=== PATIENT | female | born 1935 | race Caucasian/White ===

== ENCOUNTER → 2016-08-05 | Outpatient (CLI) | payer OTHER ==
[~2016-08-05] MED LIST: ASCO1CAP3 PO; BIOT1TAB5 PO; CALCTAB5 PO; CAND32TA PO; FOLGARD PO; IBUP-103 PO; METO-551 PO; PANT40TA PO; POLYSOL OPB; RXC5 PO; SIMV40TA2 PO
[2016-08-05 09:26] LABS: BASO % 0.4 %; BASO ABS # 0.02 K/uL (0-0.2); COMPLETE YES; EOS % 3.6 %; HEMATOCRIT 33.1 % (37-47); IG% 0.2 %; LYMPH % 29.7 %; LYMPH ABS # 1.49 K/uL (1.2-3.4); MEAN CELL VOLUME 80.5 fL (80-100); MEAN CORPUSCULAR HGB CONC 32.3 g/dl (32-36); MEAN PLATELET VOLUME 9.9 fL (7.4-10.4); MONO % 9.8 %; NEUT % 56.3 %; PLATELET COUNT 166 K/uL (130-400); RED BLOOD COUNT 4.11 M/uL (4.2-5.4); WHITE BLOOD COUNT 5.02 K/uL (4.8-10.8)
[2016-08-05 10:17] LABS: AST/SGOT 18 U/L (15-37); BLOOD UREA NITROGEN 23 mg/dl (7-18); BUN/CREATININE RATIO 20.7 (10-20); CALCIUM 8.8 mg/dl (8.5-10.1); CARBON DIOXIDE 28 mmol/L (21-32); CHLORIDE 109 mmol/L (98-107); GLUCOSE 95 mg/dl (70-99); POTASSIUM 4.1 mmol/L (3.5-5.1); SODIUM 143 mmol/L (136-145)
[2016-08-05 10:25] LABS: ALB/GLOB RATIO 0.9 (0.9-2); ALKALINE PHOSPHATASE 109 U/L (45-117); ALT/SGPT 24 U/L (12-78); CHOLESTEROL 212 mg/dl (0-200); CHOLESTEROL/HDL RATIO 2.7; HDL CHOLESTEROL 78 mg/dl; LDL CHOLESTEROL CALCULATED 99 mg/dl; TRIGLYCERIDES 174 mg/dl (0-150); VERY LOW DENSITY LIPOPROT CALC 35 mg/dl
== END | disposition home or self-care (01) ==
LOC: C.LAB1850 08:13
PROVIDERS: ATTEND Internal Medicine
DX: E78.5 Hyperlipidemia, unspecified (principal); I10 Essential (primary) hypertension

== ENCOUNTER → 2016-12-30 | Outpatient (CLI) | payer OTHER ==
[2016-12-30 10:13] LABS: BASO % 1.1 %; BASO ABS # 0.05 K/uL (0-0.2); COMPLETE YES; EOS % 2.8 %; HEMATOCRIT 33.9 % (37-47); IG% 0.2 %; LYMPH ABS # 1.44 K/uL (1.2-3.4); MEAN CELL VOLUME 84.1 fL (80-100); MEAN CORPUSCULAR HEMOGLOBIN 27.5 pg (25-34); MEAN CORPUSCULAR HGB CONC 32.7 g/dl (32-36); MONO % 10.3 %; NEUT % 54.6 %; PLATELET COUNT 160 K/uL (130-400); RED BLOOD COUNT 4.03 M/uL (4.2-5.4); WHITE BLOOD COUNT 4.65 K/uL (4.8-10.8)
[2016-12-30 12:38] LABS: ALT/SGPT 28 U/L (12-78); BLOOD UREA NITROGEN 27 mg/dl (7-18); BUN/CREATININE RATIO 22.2 (10-20); CARBON DIOXIDE 30 mmol/L (21-32); CHLORIDE 108 mmol/L (98-107); GLUCOSE 108 mg/dl (70-99); POTASSIUM 4.2 mmol/L (3.5-5.1); SODIUM 141 mmol/L (136-145)
[2016-12-30 12:43] LABS: ALB/GLOB RATIO 0.9 (0.9-2); ALKALINE PHOSPHATASE 113 U/L (45-117); AST/SGOT 18 U/L (15-37); TOTAL IRON BINDING CAPACITY 284 mcg/dl (250-450)
== END | disposition home or self-care (01) ==
LOC: C.LAB1850 09:18
PROVIDERS: ATTEND Internal Medicine
DX: D64.9 Anemia, unspecified (principal); I65.29 Occlusion and stenosis of unspecified carotid artery

== ENCOUNTER → 2017-02-18 | Outpatient (CLI) | payer OTHER ==
[2017-02-18 12:15] LABS: BASO % 0.5 %; BASO ABS # 0.03 K/uL (0-0.2); COMPLETE YES; EOS % 2.4 %; HEMATOCRIT 37.5 % (37-47); IG% 0.4 %; LYMPH % 33.4 %; LYMPH ABS # 1.84 K/uL (1.2-3.4); MEAN CORPUSCULAR HEMOGLOBIN 27.7 pg (25-34); MEAN CORPUSCULAR HGB CONC 32.5 g/dl (32-36); MEAN PLATELET VOLUME 10.3 fL (7.4-10.4); NEUT % 49.3 %; PLATELET COUNT 171 K/uL (130-400); RED BLOOD COUNT 4.41 M/uL (4.2-5.4); WHITE BLOOD COUNT 5.51 K/uL (4.8-10.8)
== END | disposition home or self-care (01) ==
LOC: C.LAB1850 10:44
PROVIDERS: ATTEND Internal Medicine
DX: D64.9 Anemia, unspecified (principal)

== ENCOUNTER → 2017-05-19 | Outpatient (CLI) | payer OTHER ==
--- NOTE | 2017-05-19 12:30 | DIAGNOSTIC IMAGING REPORT ---
CERVICAL SPINE 5 VIEWS CLINICAL HISTORY: Arm pain. FINDINGS: AP, lateral, bilateral oblique, and odontoid views of the cervical spine are obtained. No prior studies are available for comparison at the time of dictation. The skeletal structures are osteopenic. There is no radiographic evidence of fracture or subluxation. The odontoid process and lateral masses are intact as visualized on the odontoid views. Productive degenerative changes seen at the atlantodental joint. There is minimal anterolisthesis at C3-C4. Alignment is otherwise preserved. The spinolaminar line is preserved. Vertebral body height is maintained throughout the cervical spine. There is mild straightening of the cervical lordosis. The spinous processes are maintained. Anterior osteophytes are seen throughout. There is czwfirgj-ql-jrkvhadk disc space narrowing at C5-C6 with associated endplate sclerosis. Zybs-kg-lsttgbmu narrowing is seen at C4-C5. Posterior disc osteophyte complexes at C4-C5 and C5-C6 may contribute to acquired compromise of the central canal. Multilevel bilateral neural foraminal stenosis is identified, greatest at C4-C5 and C5-C6 bilaterally. Multilevel facet arthropathy is identified. The prevertebral soft tissues are within normal limits. Atherosclerotic calcification is noted in the right carotid bulb. The partially imaged apical lung parenchyma appears clear. IMPRESSION: 1. No acute bony abnormality is seen involving the cervical spine. 2. Osteopenia and spondylotic change as detailed above. Dictated: 05/19/2017 12:01 PM Transcribed: 05/19/2017 12:30 PM [place] Electronically signed by: Matt Del Rio M.D. 05/19/2017 12:33 PM Dictated Date/Time: 05/19/2017 12:01 PM
== END | disposition home or self-care (01) ==
LOC: C.RAD1850 11:33
PROVIDERS: ATTEND Internal Medicine
DX: M79.603 Pain in arm, unspecified (principal)

== ENCOUNTER → 2017-09-09 | Outpatient (CLI) | payer OTHER ==
--- NOTE | 2017-09-09 12:00 | DIAGNOSTIC IMAGING REPORT ---
RIGHT SHOULDER 3 VIEWS; RIGHT HUMERUS 2 VIEWS CLINICAL HISTORY: Right arm pain. FINDINGS: 3 views the right shoulder with AP and lateral views of the right humerus are obtained. No prior studies are available for comparison at the time of dictation. The skeletal structures are osteopenic. There is no radiographic evidence of fracture or dislocation in the right shoulder. There is no radiographic evidence of right humeral fracture. The glenohumeral articulation is preserved. Mild degenerative sclerosis is seen in the greater tuberosity of the humeral head. Productive degenerative change is noted at the acromioclavicular joint. The elbow joint is grossly intact. The overlying soft tissues are within normal limits. The visualized right lung parenchyma appears clear. The heart is enlarged and there is atherosclerotic calcification of the thoracic aorta. IMPRESSION: 1. There is no radiographic evidence of fracture or dislocation in the right shoulder. 2. There is no radiographic evidence of right humeral fracture. 3. Osteopenia and degenerative change as above. Electronically signed by: Matt Del Rio M.D. 09/09/2017 11:59 AM Dictated Date/Time: 09/09/2017 11:57 AM
== END | disposition home or self-care (01) ==
LOC: C.RAD1850 11:02
PROVIDERS: ATTEND Internal Medicine
DX: M25.511 Pain in right shoulder (principal); M85.811 Other specified disorders of bone density and structure, right shoulder; M79.601 Pain in right arm

== ENCOUNTER → 2017-10-21 | Outpatient (CLI) | payer OTHER ==
--- NOTE | 2017-10-21 15:07 | MAMMOGRAPHY REPORT ---
BILATERAL DIGITAL SCREENING MAMMOGRAM TOMOSYNTHESIS WITH CAD: 10/21/2017 CLINICAL HISTORY: Routine screening. Patient has no complaints. TECHNIQUE: Breast tomosynthesis in addition to standard 2D mammography was performed. Current study was also evaluated with a Computer Aided Detection (CAD) system. COMPARISON: Comparison is made to exams dated: 05/26/2016 mammogram, 05/22/2015 mammogram, 05/19/2014 mammogram, 05/18/2013 mammogram, 05/03/2012 mammogram, and 04/30/2011 mammogram - [facility]. BREAST COMPOSITION: There are scattered areas of fibroglandular density in both breasts. FINDINGS: No suspicious masses, calcifications, or areas of architectural distortion are noted in ei ther breast. There has been no significant interval change compared to prior exams. There are stable postsurgical changes in the right central/12:00 breast from prior lumpectomy. Coarse benign dystrop hic calcifications are also noted at the lumpectomy bed. A linear scar marker denotes a scar on the right anterior breast. Mild diffuse right breast skin thickening is not significantly changed. IMPRESSION: ACR BI-RADS CATEGORY 2: BENIGN There is no mammographic evidence of malignancy. A 1 year screening mammogram is recommended. The pa tient will receive written notification of the results. Approximately 10% of breast cancers are not detected with mammography. A negative mammographic report should not delay biopsy if a clinically suggestive mass is present. Brigette Chew M.D. ah/:10/21/2017 13:43:18 Cut Pressman: Josiane DELA CRUZ(Gabriel)(M), [facility] letter sent: Normal 1/2 BI-RADS Code: ACR BI-RADS Category 2: Benign
== END | disposition home or self-care (01) ==
LOC: C.MAMM 12:58
PROVIDERS: ATTEND Internal Medicine
DX: Z12.31 Encounter for screening mammogram for malignant neoplasm of breast (principal); Z85.3 Personal history of malignant neoplasm of breast

== ENCOUNTER 2025-01-11 06:36 | Inpatient (IN) ==
--- NOTE | 2025-01-10 09:31 | Anesthesiology Consultation ---
Date of Service January 10, 2025 Assessment & Plan (1) Encounter for pre-operative examination: Chart Review Chart Review: Acceptable Risk for Surgery (pending evaluation of patient and unconfirmed preop EKG by anesthesiologist DOS ) and Patient NOT seen in Pre Admission Testing Right limb restriction - Discussed cardiac history and recent cardio visit along with abnormal PTT with Dr. Sanchez- due to nature of procedure- patient can proceed as scheduled and will be evaluated DOS in regards to CP status. Dr Broussard's office was made aware of elevated PTT along with 2015 heme/onc consult that is scanned into chart for surgeon review. Per surgeon's office- Dr Broussard is okay proceeding with PTT abnormality. -Infectious Disease screening: Per PAT nursing assessment on 01/03/25. No known infectious disease contacts in past 10 days or current infectious disease symptoms. No recent travel outside the country. Cardiology office visit 08/30/24= six month routine follow up... "doing well from cardiac standpoint... no definite exertionally precipitated chest pains. Occ with exertion she has sensation of fatigue bilateral lower chest... sometimes gets this at rest. No dyspnea at rest. Occ dyspnea walking up 1 flight of stairs..." CAD- s/p RCA stent (remote hx). Chest weakness in lower chest "can occur independent of exertion. Stable exercise tolerance and stamina since last visit." Prelim carotid imaging shows >80% re stenosis of left ICA. Patient referred to vascular surgery. HTN- "BP markedly elevated today." Cardio hesitant to make any antihypertensive med changes due to not wanting to precipitate low BP due to carotid disease. Seen by [facility]e/Onc 03/13/15= "seen for evaluation of elevated PTT... Lupus anticoagulant checked 01/23/2015 and result was reported as positive... APTT mixing study that did not correct, suggestive of an inhibitor. Other pertinent labs performed at that time included a normal factor VIII activity of 118%, mildly elevated VWF antigen of 239%, normal collagen binding of 191% and normal VWF multimers... Patient denies any significant bleeding history... No easy bruising... Has had several surgeries in the past without any postop complications concerning for significant bleeding. Additionally she has had 4 pregnancies in the past without significant bleeding or bleeding... Denies any DVTs, no PEs." Patient was recommended to have additional lab studies and addendum was made with further recommendations. Addendum = "Repeat labs revealed a persistent elevation in her PTT. Her results are most consistent with intrinsic and/or common pathway factor deficiency, including the presence of a weak inhibitor such as a lupus anticoagulant. Given no history of easy bleeding or bruising, we repeated her lupus anticoagulant testing. The revealed her sample to positive for a lupus anticoagulant by both the STACLOT-LA hexagonal phase neutralization (confirmatory) assay (25 seconds) and the DRVV confirmatory assay (DRVV/confirm ration of 1.6). Given the lack of clinical bleeding history with a PTT that does not correct with mixing and persistent positive lupus anticoagulant tested twice about 8 weeks apart, her elevated PTT is most consistent with laboratory effect of her lupus anticoagulant. Clinically, this does not cause an increased bleeding risk and rather is considered a prothrombotic risk factor. For her upcoming knee surgery, we do not recommend any specific factor replacement or intervention to correct her PTT. She should receive appropriate postsurgical DVT prophylaxis." History Surgery Operation Date: 01/11/25 08:00 Proposed Procedures p Left Transcarotid Artery Revascularization - Cristian Broussard MD Height/Weight Height: 5 ft 5 in Weight: 72.575 kg Allergies Allergy/AdvReac Type Severity Reaction Status Date / Time amlodipine Allergy Unknown UNKNOWN Verified 01/11/25 07:21 REACTION Hgovpza-JGC-RhD Reductase Allergy Unknown ANKLE Verified 01/11/25 07:21 Inhibitor SWELLING [Djapdzl-Vdv-Mwp Reductase Inhibitor] Medications Home Medications Medication Instructions Recorded Confirmed Last Taken amoxicillin 500 mg tablet 2,000 mg PO UD PRN dental 01/03/25 01/11/25 Unknown procedures biotin 1,000 mcg chewable tablet 1,000 mcg PO QAM 01/03/25 01/11/25 1 Week Ago ~01/04/25 candesartan 16 1 tab PO QAM 01/03/25 01/11/25 01/10/25 09:00 mg-hydrochlorothiazide 12.5 mg tablet cholecalciferol (vitamin D3) 25 25 mcg PO QAM 01/03/25 01/11/25 2 Weeks Ago mcg (1,000 unit) capsule ~12/28/24 clopidogrel 75 mg tablet 75 mg PO QPM 01/03/25 01/11/25 01/11/25 06:55 folic acid 1 mg tablet 1 mg PO QAM 01/03/25 01/11/25 01/10/25 09:00 metoprolol tartrate 50 mg tablet 50 mg PO QAM 01/03/25 01/11/25 01/11/25 06:55 pantoprazole 20 mg tablet,delayed 20 mg PO QAM 01/03/25 01/11/25 01/10/25 09:00 release rosuvastatin 40 mg tablet 40 mg PO QPM 01/03/25 01/11/25 01/11/25 06:55 aspirin 81 mg chewable tablet 81 mg PO Q OTHER DAY 01/11/25 01/11/25 2 Weeks Ago ~12/28/24 Active Medications Generic Name Dose Route Start Last Admin Trade Name Dontrellq PRN Reason Stop Dose Admin Lactated Ringer's 1,000 mls @ 15 mls/hr 01/11/25 06:00 01/11/25 07:22 Lr IV 01/12/25 05:59 15 mls/hr .Q24H PIETRO Administration Past Medical History Medical History Abnormal partial thromboplastin time (PTT) - 2014- evaluated by local and [facility] heme/onc- PCP records state possible von Willebrands, cardio records state positive for lupus anticoagulant - Patient has never had had any noted bleeding issues per PCP note nor has she had any clotting issues per cardio note - PCP records state " given her abnormal PTT and additional testing completed it was recommended proper AC after surgical procedure due to increased risk of further clotting." Chronic kidney disease, stage 4 (severe) f/u [facility] baseline creat 2.0-2.2 per nephro records Bilateral carotid artery disease s/p left CEA 2004 History of anxiety Antiplatelet or antithrombotic long-term use Hx of rotator cuff tear left, received injections in the past, no sx. Hx of thrombocytopenia Mixed hyperlipidemia Hearing loss bilat. hearing aids-"cannot hear at all without them" Hx of gastroesophageal reflux (GERD) Hx of coronary artery disease Remote hx of RCA stent 2002 History of anemia Benign essential HTN Malignant neoplasm of breast (female) dx in her 60's, right breast, s/p lumpectomy and 19 xrt treatments Myocardial Infarction 2002, "mild" NSTEMI [place]; f/u [facility] cardio Past Family History Family History Sister Breast cancer Colorectal cancer Mother Coronary heart disease Lymphoma Myocardial infarction Father Myocardial infarction Denies family history of Ovarian cancer Prostate cancer Past Surgical History Surgical History Hx of colonoscopy Hx of bilateral cataract extraction Hx of tonsillectomy History of left-sided carotid endarterectomy ~ 2004 History of lumpectomy of right breast in her 60's, w/ axillary lymph node dissection; right arm restriction S/P knee replacement left History of heart artery stent 2002, mild [place], [facility], x1 stent; [place] [facility] History of cardiac cath 2002, mild [place], [facility], x1 stent; f/u [facility] Social History Smoking Status: Former smoker Do You Dip or Chew Tobacco: No Smoking End Date: 38 years ago Hx Alcohol Use: No Hx Substance Use: No substance use type: does not use Physical Exam Vital Signs Last Vital Signs Temp 36.5 C 01/11/25 06:55 Pulse 88 01/11/25 06:55 Resp 20 01/11/25 06:55 BP 171/109 H 01/11/25 06:55 Pulse Ox 97 01/11/25 06:55 O2 Del Method Room Air 01/11/25 06:55 Lab Results Anesthesia Preop Results Results Anesthesia Widget: WBC 4.79 K/ul (4.8-10.8) L 01/10/25 Hgb 10.3 g/dl (12.0-16.0) L 01/10/25 Hct 31.2 % (37.0-47.0) L 01/10/25 Plt 110 K/uL (130-400) L 01/10/25 Na 141 mmol/L (136-145) 01/10/25 K 4.6 mmol/L (3.5-5.1) 01/10/25 Cl 109 mmol/L (98-107) H 01/10/25 CO2 24 mmol/L (21-32) 01/10/25 BUN 41 mg/dl (6-23) H 01/10/25 Creat 2.36 mg/dl (0.6-1.2) H 01/10/25 Glucose Level 93 mg/dl (70-99(Fasting)) 01/10/25 PT 11.4 Seconds (9.0-12.0) 01/10/25 PTT 63 Seconds (21-31) H 01/10/25 INR 1.1 (0.9-1.1) 01/10/25 Blood Type O Positive 01/10/25 Antibody Screen NEGATIVE 01/10/25 Testing Laboratory Results Anemia- chronic and stable - Hgb ranges in 10-11s - will leave to surgeon's discretion with how to proceed Thrombocytopenia- chronic and stable since 2021- will leave to surgeon's discretion with how to proceed Elevated creatinine- CKD- follows with nephro - baseline creat 2.0-2.2 per records Elevated PTT- comparison PTT found in showed PTT around 44- surgeon's office was made aware- okay to proceed per Dr Broussard per surgeon's office Electrocardiogram Date: 01/10/25 SR with 1st degree AVB at 73bpm Inferior infarct (cited on or before May 04, 2018) Possible anterior infarct (cited on or before May 04, 2018) unconfirmed- will need reviewed by anesthesiologist stat DOS (Normal DSE on 05/04/18) Other Testing Neck MRA 11/14/24= Mild diffuse atherosclerotic changes are seen with mild tortuous appearance of carotid vessels. Mild diffuse relative narrowing of left common carotid artery seen as compared to the right side with mild mural thickening in its distal part close to its bifurcation resulting in mild luminal narrowing of less than 50% for the length of 1.0 cm. Left common carotid bulb and proximal left internal carotid artery show moderate stenosis of less than 70% for the length 1.8 cm, however there is focal stenosis of more than 80% at the distal end of this above-described stenosed segment of proximal left ICA. Rest of the distal cervical left internal carotid artery shows mild relative attenuation as compared to the right side. Correlate clinically. Carotid duplex 08/30/24= <50% stenosis right ICA. >80% re-stenosis of left ICA s/p CEA. Antegrade flow to both vertebral arteries
[2025-01-11] MEDS ORDERED: PROPOFOL IV EMULSION 10 MG/ML 20 ML VIAL IV ONE (06:54)
[2025-01-11] MEDS ORDERED: GLYCOPYRROLATE 0.2 MG/ML VIAL ONE ×3 (06:55→08:56)
[2025-01-11] MEDS ORDERED: NEOSTIGMINE METHYLSULFATE 1 MG/ML 10ML VIAL ONE (06:56)
[2025-01-11] MEDS ORDERED: CISATRACURIUM BESYLATE IV SOLN 2 MG/ML 10 ML VIAL IV ONE (06:57)
[2025-01-11] MEDS ORDERED: ETOMIDATE 2 MG/ML 20 ML VIAL IV ONE (06:58)
[2025-01-11] MEDS ORDERED: HEPARIN SOD (PORCINE) 1000 UNIT/ML ONE (06:59)
[2025-01-11] MEDS: ASPIRIN 81 MG CHEW PO STA (07:16)
[2025-01-11] MEDS: CLOPIDOGREL BISULFATE 300 MG TAB PO STA (07:16)
[2025-01-11] MEDS: LACTATED RINGER'S 1,000 ML IV SCH ×2 (07:22→11:33)
--- NOTE | 2025-01-11 07:28 | History & Physical Report ---
Date of Service January 11, 2025 Assessment & Plan (1) Left carotid artery stenosis: Plan: Patient admitted for a left tcar. I have discussed the risks options and benefits of the procedure with the patient. The patient understands the risks options and benefits and agrees to the procedure. History of Present Illness Chief Complaint: Left carotid stenosis Primary Care Provider: Feliberto Alejo MD Ms. Amado is an elderly female who presents to vascular surgery clinic in consultation for carotid stenosis noted on recent imaging. Patient states that she did have a left carotid endarterectomy performed by Dr. Arriaga in the remote past. She states that her glazier structural glass has been having her get ultrasounds performed periodically, and she was informed that her most recent ultrasound indicated worsening restenosis in this area. Patient states that her primary symptoms at this time are that she is very hard of hearing and is hearing voices occasionally which sound like someone is singing. She admits some occasional numbness to the lateral side of her right leg, but states that it continues to function perfectly fine. Additionally she states that she occasionally gets a severe headache which is generalized and not unilateral. She states that she has had all the symptoms for a number of years. She denies true amaurosis, but states that she sometimes does feel as if she sees someone walking past her left eye, but when she turns her head no one is there. She denies feeling as if part of her vision is missing, or a curtain is coming down or cloud is coming over her eye. She denies unilateral extremity weakness numbness or tingling, difficulty speaking or swallowing, facial droop, sudden onset confusion, other complaints. She denies fever, chest pain, shortness of breath, abdominal pain, nausea, vomiting, rest pain, claudication, nonhealing's or ulcers, other complaints. Her MRA of her carotids artery showed a severe preocclusive lesion of the left internal carotid artery just at the distal end of the endarterectomy site. The right carotid has approximately 50% narrowing at its origin. Allergies Allergy/AdvReac Type Severity Reaction Status Date / Time amlodipine Allergy Unknown UNKNOWN Verified 01/11/25 07:21 REACTION Ipmfvwp-TUF-GjH Reductase Allergy Unknown ANKLE Verified 01/11/25 07:21 Inhibitor SWELLING [Pniifts-Nat-Jqu Reductase Inhibitor] Home Medications Medication Instructions Recorded Confirmed Type amoxicillin 500 mg tablet 2,000 mg PO UD PRN dental 01/03/25 01/11/25 History procedures biotin 1,000 mcg chewable tablet 1,000 mcg PO QAM 01/03/25 01/11/25 History candesartan 16 1 tab PO QAM 01/03/25 01/11/25 History mg-hydrochlorothiazide 12.5 mg tablet cholecalciferol (vitamin D3) 25 25 mcg PO QAM 01/03/25 01/11/25 History mcg (1,000 unit) capsule clopidogrel 75 mg tablet 75 mg PO QPM 01/03/25 01/11/25 History folic acid 1 mg tablet 1 mg PO QAM 01/03/25 01/11/25 History metoprolol tartrate 50 mg tablet 50 mg PO QAM 01/03/25 01/11/25 History pantoprazole 20 mg tablet,delayed 20 mg PO QAM 01/03/25 01/11/25 History release rosuvastatin 40 mg tablet 40 mg PO QPM 01/03/25 01/11/25 History aspirin 81 mg chewable tablet 81 mg PO Q OTHER DAY 01/11/25 01/11/25 History Past Med/Surg History Problem List Encounter for pre-operative examination History of right breast cancer 1990s Hypertension Reactive hypertension Sensorineural hearing loss, bilateral Tinnitus of left ear Left carotid artery stenosis Thrombocytopenia Secondary hyperparathyroidism of renal origin Anemia due to chronic kidney disease Presence of stent in right coronary artery Rotator cuff tear, left HI (hearing impairment) Shoulder pain, left Vitamin D deficiency disease Vitamin B12 deficiency Visual aura Antiplatelet or antithrombotic long-term use History of left-sided carotid endarterectomy Mixed hyperlipidemia CAD (coronary artery disease) 2002 Palpitations GERD (gastroesophageal reflux disease) Osteoarthritis of knee Medical History Abnormal partial thromboplastin time (PTT) - 2014- evaluated by local and [facility] [place]c- PCP records state possible von Willebrands, cardio records state positive for lupus anticoagulant - Patient has never had had any noted bleeding issues per PCP note nor has she had any clotting issues per cardio note - PCP records state " given her abnormal PTT and additional testing completed it was recommended proper AC after surgical procedure due to increased risk of further clotting." Chronic kidney disease, stage 4 (severe) f/u [facility] neph[facility] baseline creat 2.0-2.2 per nephro records Bilateral carotid artery disease s/p left CEA 2004 History of anxiety Antiplatelet or antithrombotic long-term use Hx of rotator cuff tear left, received injections in the past, no sx. Hx of thrombocytopenia Mixed hyperlipidemia Hearing loss bilat. hearing aids-"cannot hear at all without them" Hx of gastroesophageal reflux (GERD) Hx of coronary artery disease Remote hx of RCA stent 2002 History of anemia Benign essential HTN Malignant neoplasm of breast (female) dx in her 60's, right breast, s/p lumpectomy and 19 xrt treatments Myocardial Infarction 2003, "mild" NSTEMI [place]; f/u [facility] Surgical History Hx of colonoscopy Hx of bilateral cataract extraction Hx of tonsillectomy History of left-sided carotid endarterectomy ~ 2004 History of lumpectomy of right breast in her 60's, w/ axillary lymph node dissection; right arm restriction S/P knee replacement left History of heart artery stent 2002, mild [place], [facility], x1 stent; f/u [facility] History of cardiac cath 2002, mild [place], [facility], x1 stent; f/u [facility] Family History Sister Breast cancer Colorectal cancer Mother Coronary heart disease Lymphoma Myocardial infarction Father Myocardial infarction Denies family history of Ovarian cancer Prostate cancer Social History Smoking Status: Former smoker Smoking End Date: 38 years ago; Second Hand Exposure: Yes (hx, smokes); Do You Dip or Chew Tobacco: No; Tobacco Cessation Education Requested by Patient: No Hx Alcohol Use: No Hx Substance Use: No Preferred Language: Serbian Communication Ability: Effective Visual Impairment: No Limitations Hearing Ability: Use of Hearing Aid Purchasing Administrative Assistant Required: No Beliefs That Will Affect Care: None marital status: Current Living Situation: Spouse current occupational status: retired Other Information That Helps Us Care for You: No Feels Safe at Home: Yes Safety Concerns: Feels Safe At This Time Childhood Exposure to Second-Hand Smoke: Yes Dental Care, Regularly: Yes Physical Activity Frequency: Daily Seatbelt Use: always Sunscreen Use: No Assistive Devices: Cane and Hearing Aid - Bilateral Review of Systems All systems reviewed & are unremarkable except as noted in HPI & below Physical Exam Physical Exam: Constitutional: In general patient is a healthy appearing for age well-nourished well-developed elderly female in no distress. She is alert and oriented without focal deficits. She is hard of hearing. Her trachea is midline. Her carotids do demonstrate a faint bruit. Her heart is regular with occasional PVCs. Her abdomen is soft nontender with erected bowel sounds in all 4 quadrants. Radial and brachial pulses are +3. Femoral pulses are +3. Lower extremity distal pulses are +1. She has brisk capillary refill and no sign of distal ischemia. Results & Data Vital Signs (Past 12 Hours) Vital Signs Temp Pulse Resp BP Pulse Ox O2 Del Method 01/11/25 06:55 36.5 C 88 20 171/109 H 97 Room Air
[2025-01-11] MEDS ORDERED: ATROPINE SULFATE 0.1 MG/ML 10ML SYR IV PRN (07:29)
[2025-01-11] MEDS ORDERED: NALOXONE HCL 0.4 MG/1 ML VIAL/CARP IV PRN (07:29)
[2025-01-11] MEDS ORDERED: PROMETHAZINE HCL 6.25 MG in SODIUM CHLORIDE 0.9% 50 ML IV PRN (07:29)
[2025-01-11] MEDS ORDERED: ONDANSETRON INJ 2 MG/ML 2 ML VIAL IV PRN (07:29)
[2025-01-11] MEDS ORDERED: SUCCINYLCHOLINE 100MG/5ML SYR IV ONE (08:57)
[2025-01-11] MEDS ORDERED: ePHEDrine sulfate 50 MG/5 ML SYR ONE (08:57)
[2025-01-11] MEDS ORDERED: PHENYLEPHRINE 100MCG/ML 5ML SYR ONE (08:57)
[2025-01-11] MEDS ORDERED: PROTAMINE SULFATE 10 MG/ML 5 ML VIAL IV ONE (09:03)
[2025-01-11] MEDS: VISIPAQUE IV ONE (09:06)
[2025-01-11] MEDS: ceFAZolin 330 MG/ML 1 GM VIAL ONE (09:10)
[2025-01-11] MEDS: BUPIVACAINE/EPINEPHRINE 0.5% MPF 1:200,000 30 ML VIAL ONE (09:10)
[2025-01-11] MEDS ORDERED: NITROGLYCERIN/D5W 100 MCG/ML BTL ONE (09:15)
[2025-01-11] MEDS ORDERED: ESMOLOL HCL INJ 10 MG/ML 10ML VIAL IV ONE (09:18)
[2025-01-11] MEDS: THROMBIN FOR SOLN 20000 UNIT KIT ONE (09:18)
[2025-01-11] MEDS: GELATIN SPONGE SZ 100 ONE (09:18)
--- NOTE | 2025-01-11 09:32 | Procedure Note ---
Angiogram Post Procedure Fluoroscopy Time (minutes): 2.3 Radiation (mGy): 33 Contrast: 15 Post Operative Report Pre & Post Diagnosis Operation Date: 01/11/25 08:00 Pre-Op Diagnosis: Left carotid artery stenosis Post-Op Diagnosis: Left carotid artery stenosis I identified the patient and participated in the time-out.: Yes Procedure Operation Date: 01/11/25 08:00 Actual Procedures p Left Transcarotid Artery Revascularization(Left), Ultrasound localization of the right common femoral vein- Cristian Broussard MD Surgeon Cristian Broussard MD [employer] Consultant none Estimated Blood Loss 10 Findings Consistent with Post-Op Diagnosis Specimens none Anesthesia Type General Complications none Disposition Accompanied Patient To Recovery: No Disposition: Recovery Room Indications This is an 89-year-old female who had a carotid endarterectomy left side years ago. She has now developed a restenosis in the distal end of the endarterectomy site in the internal carotid artery which was preocclusive. Redo endarterectomy versus TCAR was recommended. She elected to go ahead with a TCAR approach. I have discussed the risks options and benefits of the procedure with the patient. The patient understands the risks options and benefits and agrees to the procedure. Description of Procedure The patient was taken to the operating room and placed in supine position. After general anesthesia was accomplished the groins and left side of the neck and chest were prepped and draped in a sterile manner. Timeout was performed and the patient was identified. A transverse incision was made just above the clavicle between the heads of the sternocleidomastoid. This was carried down to where the common carotid artery was identified. It was isolated and slung with an umbilical tape. It was given 8000units of heparin at that time. Ultrasound was then used to localize the right common femoral vein. The vein was patent and compressed easily. Under ultrasound guidance the right common femoral vein was punctured and the venous sheath was inserted. This was aspirated and flushed with heparinized saline. An ACT at that time was 297. Using micropuncture technique the common carotid artery was punctured. The micro sheath was inserted to 3 cm. Injection was then done showing the bifurcation. There was a significant lesion seen just beyond the origin of the internal carotid artery on the left side at what appeared to be the end of the endarterectomy site. We reinserted the micro wire and passed it into the external carotid. We then advanced the dilator and sheath into the external carotid. The dilater and sheath were removed. We then inserted the J-wire into the external carotid artery. The TCAR sheath was inserted. Once it was in place and held against the artery it was sutured to the chest wall and the incision edge. We then flushed the tubing appropriately. The venous return tubing was clamped onto the TCAR sheath. It was flushed through and then attached to the venous inflow sheath in the right groin. The sheath was checked for flow. The common carotid artery was then clamped. Flow through the venous return sheath was again checked and found to be adequate. We then inserted a 6 x 35 balloon backloaded on the wire. The wire was passed through the lesion into the petrous portion of the internal carotid. The 6 balloon was then advanced to the lesion. The lesion was then predilated with the 6 mm balloon. The balloon was removed. We then inserted the 10/8 x 40 stent. This was deployed across the lesion without difficulty. The catheter was removed. The carotid was allowed to go 2 minutes with flow reversal. We did another angiogram which showed no residual stenosis and a nicely seated stent.The wire was removed and the common carotid artery was unclamped. The venous return tubing was clamped and removed from the TCAR sheath. The blood was allowed to flow back into the venous system. The TCAR sheath was then removed and the 5-0 Prolene suture securely tied. Hemostasis was noted of the puncture site. The patient was given 25 mg of protamine. Another ACT was performed which was 167. The sheath was pulled from the groin and pressure was applied. Wound was irrigated with Ancef solution. Adequate hemostasis was obtained of the wound. Once this was noted the wound was closed in usual fashion using a 3-0 Vicryl suture for the subcutaneous layer and a 4-0 subcuticular Vicryl suture for the skin edges. Dermabond was used for dressing.The patient left the operation room in satisfactory condition and tolerated the procedure well. All needle and sponge counts were correct at the end of the procedure. I attest to the content of the Intraoperative Record and any orders documented therein. Any exceptions are noted below.
--- NOTE | 2025-01-11 10:26 | Anesthesiology Progress Note ---
Date of Service January 11, 2025 Anesthesia Post Procedure Vital Signs Vital Signs: Temp Pulse Resp BP BP Pulse Ox O2 Del Method 01/11/25 10:20 78 14 164/90 H 165/74 H 95 Room Air 01/11/25 10:10 36.3 C L 73 12 155/81 H 168/81 H 96 Room Air 01/11/25 10:00 75 16 163/106 H 167/104 H 100 Oxymask 01/11/25 09:50 76 16 163/102 H 178/105 H 100 Oxymask 01/11/25 09:40 36.3 C L 87 18 184/101 H 100 Oxymask 01/11/25 06:55 36.5 C 88 20 171/109 H 97 Room Air O2 Flow Rate 01/11/25 10:20 01/11/25 10:10 01/11/25 10:00 2 01/11/25 09:50 4 01/11/25 09:40 6 01/11/25 06:55 Transfer of Care Handoff Completed per policy Notes Mental Status: alert / awake / arousable Patient Amnestic to Procedure: Yes Nausea / Vomiting: adequately controlled Pain: adequately controlled Airway Patency, RR, SpO2: stable & adequate BP & HR: stable & adequate Hydration State: stable & adequate Anesthetic Complications: no major complications apparent
[2025-01-11] MEDS ORDERED: STAT IV Infusion **Titration per Protocol STA (10:44)
[2025-01-11] MEDS ORDERED: PHENYLEPHRINE/NSS 25 MG/250 ML BAG IV PRN (10:44)
[2025-01-11] MEDS: PROMETHAZINE 12.5 MG/50.5 ML BAG IV PRN (11:28)
--- NOTE | 2025-01-11 16:41 | Critical Care Consultation ---
Date of Consultation January 11, 2025 Assessment & Plan (1) Hypertension: (2) Thrombocytopenia: (3) Anemia due to chronic kidney disease: (4) CAD (coronary artery disease): (5) GERD (gastroesophageal reflux disease): (6) Bilateral carotid artery disease: (7) Chronic kidney disease, stage 4 (severe): Plan Jane Wright is an 89 year-old female with past medical history of hypertension, right breast CA, sensorineural hearing loss, anemia of chronic disease, CAD, GERD, osteoarthritis, HLD, CKD stage 4, and carotid artery stenosis; who presented to [facility] on 01/11/2025 for planned left TCAR. Carotid artery disease; Left carotid stenosis in setting of prior CEA -Maintain SBP > 100 -Neurovascular checks per protocol -Cont aspirin and plavix - Hypertension; CAD -Cont HCTZ and losartan start 01/12/2025 -Continue metoprolol start 01/12/2025 Chronic kidney Disease Stage 4 -Baseline creatinine 1.9-2.3. Admit creatinine 2.22. -Monitor renal function. Avoid nephrotoxic agents. GERD -Continue PPI Anemia of chronic disease; thrombocytopenia -Chronic likely secondary to kidney disease and chronic illness -Hgb 10.3 on admission. Monitor for signs of bleeding. -Platelet count at baseline 100- 120. Plt count 110 on admission Thank you for allowing us to participate in this patient's care. Feel free to reach out with questions or concerns. Supervising Physician Co-Signing Physician Notes 89-year-old female status post elective left TCAR. Doing well. Hemodynamically stable. No focal neurological signs on exam. Continue close hemodynamic monitoring and neurovascular checks. Continue dual antiplatelets and home meds per vascular surgeon. History of Present Illness Reason for Consultation: Post operative management of left TCAR Attending Physician: Cristian Broussard MD History of Present Illness Jane Wright is an 89 year-old female with past medical history of hypertension, right breast CA, sensorineural hearing loss, anemia of chronic disease, CAD, GERD, osteoarthritis, HLD, CKD stage 4, and carotid artery stenosis; who presented to [facility] on 01/11/2025 for planned left TCAR. The patient was getting routine vascular ultrasound ordered by her cardio. The most recent in August of 2024 showed restenosis of the left carotid artery post CEA. The patient had an MRA which showed a severe preocclusive lesion of the left internal carotid artery just at the distal end of the endarterectomy site. The right carotid has approximately 50% narrowing at its origin. Patient was evaluated by Dr. Broussard and setup for left TCAR on 01/11/2025. Per report the procedure went well without complications. She was brought back to the ICU post operatively for continued evaluation and management. Allergies Allergy/AdvReac Type Severity Reaction Status Date / Time amlodipine Allergy Unknown UNKNOWN Verified 01/11/25 07:21 REACTION Lqvccmk-LOO-GoV Reductase Allergy Unknown ANKLE Verified 01/11/25 07:21 Inhibitor SWELLING [Ehqqcxl-Cor-Bji Reductase Inhibitor] Home Medications Medication Instructions Recorded Confirmed Type amoxicillin 500 mg tablet 2,000 mg PO UD PRN dental 01/03/25 01/11/25 History procedures biotin 1,000 mcg chewable tablet 1,000 mcg PO QAM 01/03/25 01/11/25 History candesartan 16 1 tab PO QAM 01/03/25 01/11/25 History mg-hydrochlorothiazide 12.5 mg tablet cholecalciferol (vitamin D3) 25 25 mcg PO QAM 01/03/25 01/11/25 History mcg (1,000 unit) capsule clopidogrel 75 mg tablet 75 mg PO QPM 01/03/25 01/11/25 History folic acid 1 mg tablet 1 mg PO QAM 01/03/25 01/11/25 History metoprolol tartrate 50 mg tablet 50 mg PO QAM 01/03/25 01/11/25 History pantoprazole 20 mg tablet,delayed 20 mg PO QAM 01/03/25 01/11/25 History release rosuvastatin 40 mg tablet 40 mg PO QPM 01/03/25 01/11/25 History aspirin 81 mg chewable tablet 81 mg PO Q OTHER DAY 01/11/25 01/11/25 History Patient History Medical History Abnormal partial thromboplastin time (PTT) - 2014- evaluated by local and [facility] heme/onc- PCP records state possible von Willebrands, cardio records state positive for lupus anticoagulant - Patient has never had had any noted bleeding issues per PCP note nor has she had any clotting issues per cardio note - PCP records state " given her abnormal PTT and additional testing completed it was recommended proper AC after surgical procedure due to increased risk of further clotting." Chronic kidney disease, stage 4 (severe) f/u [facility] baseline creat 2.0-2.2 per nephro records Bilateral carotid artery disease s/p left CEA 2004 History of anxiety Antiplatelet or antithrombotic long-term use Hx of rotator cuff tear left, received injections in the past, no sx. Hx of thrombocytopenia Mixed hyperlipidemia Hearing loss bilat. hearing aids-"cannot hear at all without them" Hx of gastroesophageal reflux (GERD) Hx of coronary artery disease Remote hx of RCA stent 2002 History of anemia Benign essential HTN Malignant neoplasm of breast (female) dx in her 60's, right breast, s/p lumpectomy and 19 xrt treatments Myocardial Infarction 2003, "mild" NSTEMI [place]; f/[facility] Surgical History Hx of colonoscopy Hx of bilateral cataract extraction Hx of tonsillectomy History of left-sided carotid endarterectomy ~ 2004 History of lumpectomy of right breast in her 60's, w/ axillary lymph node dissection; right arm restriction S/P knee replacement left History of heart artery stent 2003, mild [place], [facility], x1 stent; [facility] History of cardiac cath 2002, mild [place], [facility], x1 stent; [facility] Family History Sister Breast cancer Colorectal cancer Mother Coronary heart disease Lymphoma Myocardial infarction Father Myocardial infarction Denies family history of Ovarian cancer Prostate cancer Social History Smoking Status: Former smoker Smoking End Date: 38 years ago; Second Hand Exposure: Yes (hx, smokes); Do You Dip or Chew Tobacco: No; Tobacco Cessation Education Requested by Patient: No Hx Alcohol Use: No Hx Substance Use: No Preferred Language: Panamanian Communication Ability: Effective Visual Impairment: No Limitations Hearing Ability: 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 of 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 Hand Required: No Beliefs That Will Affect Care: None marital status: Current Living Situation: Spouse current occupational status: retired Other Information That Helps Us Care for You: No Feels Safe at Home: Yes Safety Concerns: Feels Safe At This Time Childhood Exposure to Second-Hand Smoke: Yes Dental Care, Regularly: Yes Physical Activity Frequency: Daily Seatbelt Use: always Sunscreen Use: No Assistive Devices: Hearing Aid - Bilateral Assistive Devices Comment: at home, patient uses cane PRN, and glasses Review of Systems Review of Systems: All systems reviewed & are unremarkable except as noted in HPI & below Physical Exam Physical Exam: VITALS: Reviewed. WEIGHT/BMI reviewed. GEN: Stated age appearing, NAD. PSYCH: Good Judgment. AOx3. Normal memory, mood, and affect. HEENT -Head: NC/AT; -Eyes: PERRL, EOMI. No discharge or redn ess; -Ears: External ears are normal. -Nose: Normal nares. NECK: Supple, with no masses. left TCAR site with ecchymosis but no hematoma CV: RRR, no m/r/g. LUNGS: CTAB, no w/r/c. ABD: Soft, NT/ND, NBS, no masses or organomegaly. : N/A SKIN: Warm, well perfused. No skin rashes or abnormal lesions. Groin access site with no hematoma or bleeding. MSK: No deformities, Normal gait. EXT: No clubbing, cyanosis, or edema. NEURO: Normal muscle strength and tone. No focal deficits. Results & Data Results & Data Vital Signs (Past 12 Hours) Vital Signs Temp Pulse Pulse Resp BP BP BP 01/11/25 13:00 162/84 H 01/11/25 13:00 63 16 01/11/25 12:15 62 21 01/11/25 12:00 167/86 H 01/11/25 11:06 78 01/11/25 11:03 76 14 01/11/25 11:00 151/104 H 01/11/25 10:57 63 15 01/11/25 10:44 36.5 C 63 17 166/80 H 01/11/25 10:30 36.5 C 59 L 18 158/90 H 01/11/25 10:20 78 14 164/90 H 165/74 H 01/11/25 10:10 36.3 C L 73 12 155/81 H 168/81 H 01/11/25 10:00 75 16 163/106 H 167/104 H 01/11/25 09:50 76 16 163/102 H 178/105 H 01/11/25 09:40 36.3 C L 87 18 184/101 H 01/11/25 06:55 36.5 C 88 20 171/109 H Pulse Ox O2 Del Method O2 Flow Rate 01/11/25 13:00 01/11/25 13:00 100 01/11/25 12:15 99 01/11/25 12:00 01/11/25 11:06 01/11/25 11:03 97 01/11/25 11:00 01/11/25 10:57 96 01/11/25 10:44 100 Room Air 01/11/25 10:30 100 Room Air 01/11/25 10:20 95 Room Air 01/11/25 10:10 96 Room Air 01/11/25 10:00 100 Oxymask 2 01/11/25 09:50 100 Oxymask 4 01/11/25 09:40 100 Oxymask 6 01/11/25 06:55 97 Room Air Critical Care Results & Data Vital Signs (Past 12 Hours) Vital Signs Temp Pulse Pulse Resp BP BP BP 01/11/25 13:00 162/84 H 01/11/25 13:00 63 16 01/11/25 12:15 62 21 01/11/25 12:00 167/86 H 01/11/25 11:06 78 01/11/25 11:03 76 14 01/11/25 11:00 151/104 H 01/11/25 10:57 63 15 01/11/25 10:44 36.5 C 63 17 166/80 H 01/11/25 10:30 36.5 C 59 L 18 158/90 H 01/11/25 10:20 78 14 164/90 H 165/74 H 01/11/25 10:10 36.3 C L 73 12 155/81 H 168/81 H 01/11/25 10:00 75 16 163/106 H 167/104 H 01/11/25 09:50 76 16 163/102 H 178/105 H 01/11/25 09:40 36.3 C L 87 18 184/101 H 01/11/25 06:55 36.5 C 88 20 171/109 H Pulse Ox O2 Del Method O2 Flow Rate 01/11/25 13:00 01/11/25 13:00 100 01/11/25 12:15 99 01/11/25 12:00 01/11/25 11:06 01/11/25 11:03 97 01/11/25 11:00 01/11/25 10:57 96 01/11/25 10:44 100 Room Air 01/11/25 10:30 100 Room Air 01/11/25 10:20 95 Room Air 01/11/25 10:10 96 Room Air 01/11/25 10:00 100 Oxymask 2 01/11/25 09:50 100 Oxymask 4 01/11/25 09:40 100 Oxymask 6 01/11/25 06:55 97 Room Air Lab & Micro Results (Past 24 Hours) No Data to Display No Data to Display No Data to Display I & O Totals 24 Hours 01/10/25 01/11/25 01/12/25 06:59 06:59 06:59 Intake Total 775.5 / 775.5 Output Total 10 / 10 Balance 765.5 / 765.5 Cumulative 12/13/24 10:31 thru 01/11/25 12:00 Intake Total 775.5 Output Total 10 Balance 765.5 RT Ventilator Mngmt (Last Documented) Ventilator Ordered Settings Respiratory Rate 16 01/11/25 13:00 Ventilator - PT Measurements Respiratory Rate 16 Coding Level of Care Code 03107 INT INP/OBS CARE 2/55MIN Diagnoses Hypertension I10 Thrombocytopenia D69.6 Anemia due to chronic kidney disease N18.9; D63.1 CAD (coronary artery disease) I25.10 GERD (gastroesophageal reflux disease) K21.9 Bilateral carotid artery disease I73.9 Chronic kidney disease, stage 4 (severe) N18.4
[2025-01-12] MEDS ORDERED: NON-FORMULARY MEDICATION (Biotin 1,000 mcg Tablet,Chewable) PO SCH (09:00)
[2025-01-12] MEDS: METOPROLOL TARTRATE 50 MG TAB PO SCH (09:26)
[2025-01-12] MEDS: FOLIC ACID 1 MG TAB PO SCH (09:27)
[2025-01-12] MEDS: LOSARTAN POTASSIUM 50 MG TAB PO SCH (09:27)
[2025-01-12] MEDS: CHOLECALCIFEROL 25 MCG (1000 UNITS) TAB PO SCH (09:27)
[2025-01-12] MEDS: hydroCHLOROthiazide 25 MG TAB PO SCH (09:27)
[2025-01-12] MEDS: ASPIRIN 81 MG CHEW PO SCH (09:27)
[2025-01-12 10:33] VITALS: RESP 16; O2SAT 93
--- NOTE | 2025-01-12 11:30 | Critical Care Progress Note ---
Date of Service January 12, 2025 Assessment & Plan (1) Hypertension: (2) Thrombocytopenia: (3) Anemia due to chronic kidney disease: (4) CAD (coronary artery disease): (5) GERD (gastroesophageal reflux disease): (6) Bilateral carotid artery disease: (7) Chronic kidney disease, stage 4 (severe): Plan Jane Wright is an 89 year-old female with past medical history of hypertension, right breast CA, sensorineural hearing loss, anemia of chronic disease, CAD, GERD, osteoarthritis, HLD, CKD stage 4, and carotid artery stenosis; who presented to [facility] on 01/11/2025 for planned left TCAR. Carotid artery disease; Left carotid stenosis in setting of prior CEA -Maintain SBP > 100 -Neurovascular checks per protocol -Cont aspirin and plavix Hypertension; CAD -Cont HCTZ and losartan start 01/12/2025 -Continue metoprolol start 01/12/2025 Chronic kidney Disease Stage 4 -Baseline creatinine 1.9-2.3. Admit creatinine 2.22. -Monitor renal function. Avoid nephrotoxic agents. GERD -Continue PPI Anemia of chronic disease; thrombocytopenia -Chronic likely secondary to kidney disease and chronic illness -Hgb 10.3 on admission. Monitor for signs of bleeding. -Platelet count at baseline 100- 120. Plt count 110 on admission Thank you for allowing us to participate in this patient's care. Feel free to reach out with questions or concerns. Admission and Anticipated Discharge Date Admission Date: January 11, 2025 Subjective Patient neuro intact and hemodynamically stable. Plan for discharge today. Review of Systems Review of Systems: All systems reviewed & are unremarkable except as noted in HPI & below Physical Exam Physical Exam: VITALS: Reviewed. WEIGHT/BMI reviewed. GEN: Stated age appearing, NAD. PSYCH: Good Judgment. AOx3. Normal memory, mood, and affect. HEENT -Head: NC/AT; -Eyes: PERRL, EOMI. No discharge or redn ess; -Ears: External ears are normal. -Nose: Normal nares. NECK: Supple, with no masses. left TCAR site with ecchymosis but no hematoma CV: RRR, no m/r/g. LUNGS: CTAB, no w/r/c. ABD: Soft, NT/ND, NBS, no masses or organomegaly. : N/A SKIN: Warm, well perfused. No skin rashes or abnormal lesions. Groin access site with no hematoma or bleeding. MSK: No deformities, Normal gait. EXT: No clubbing, cyanosis, or edema. NEURO: Normal muscle strength and tone. No focal deficits. Results & Data Results & Data Vital Signs (Past 12 Hours) Vital Signs Temp Pulse Resp BP BP Pulse Ox O2 Del Method 01/12/25 10:00 110/73 01/12/25 10:00 110/73 01/12/25 10:00 70 16 110/73 93 01/12/25 09:00 96 H 14 140/81 95 Room Air 01/12/25 08:00 102 H 18 106/82 94 Room Air 01/12/25 08:00 102 H 01/12/25 07:00 36.4 C L 97 H 14 134/95 97 Room Air 01/12/25 06:00 153/88 H 01/12/25 06:00 78 15 96 01/12/25 05:00 131/89 01/12/25 04:48 82 16 100 01/12/25 04:03 75 16 100 01/12/25 04:00 137/84 01/12/25 03:00 77 17 100 01/12/25 03:00 126/79 01/12/25 02:00 122/78 01/12/25 01:00 145/78 H 01/12/25 00:57 83 17 100 01/12/25 00:30 36.5 C 01/12/25 00:09 66 14 100 01/12/25 00:00 143/90 H 01/12/25 00:00 79 Critical Care Results & Data Vital Signs (Past 12 Hours) Vital Signs Temp Pulse Resp BP BP Pulse Ox O2 Del Method 01/12/25 10:00 110/73 01/12/25 10:00 110/73 01/12/25 10:00 70 16 110/73 93 01/12/25 09:00 96 H 14 140/81 95 Room Air 01/12/25 08:00 102 H 18 106/82 94 Room Air 01/12/25 08:00 102 H 01/12/25 07:00 36.4 C L 97 H 14 134/95 97 Room Air 01/12/25 06:00 153/88 H 01/12/25 06:00 78 15 96 01/12/25 05:00 131/89 01/12/25 04:48 82 16 100 01/12/25 04:03 75 16 100 01/12/25 04:00 137/84 01/12/25 03:00 77 17 100 01/12/25 03:00 126/79 01/12/25 02:00 122/78 01/12/25 01:00 145/78 H 01/12/25 00:57 83 17 100 01/12/25 00:30 36.5 C 01/12/25 00:09 66 14 100 01/12/25 00:00 143/90 H 01/12/25 00:00 79 Lab & Micro Results (Past 24 Hours) No Data to Display No Data to Display No Data to Display I & O Totals 24 Hours 01/11/25 01/12/25 01/13/25 06:59 06:59 06:59 Intake Total 1680.167 / 1680.167 360 / 360 Output Total 10 / 10 Balance 1670.167 / 1670.167 360 / 360 Cumulative 12/13/24 10:31 thru 01/12/25 10:00 Intake Total 2040.167 Output Total 10 Balance 2030.167 RT Ventilator Mngmt (Last Documented) Ventilator Ordered Settings Respiratory Rate 16 01/12/25 10:00 Ventilator - PT Measurements Respiratory Rate 16 Coding Level of Care Code 36934 SUB INP/OBS CARE 2/35MIN Diagnoses Hypertension I10 Thrombocytopenia D69.6 Anemia due to chronic kidney disease N18.9; D63.1 CAD (coronary artery disease) I25.10 GERD (gastroesophageal reflux disease) K21.9 Bilateral carotid artery disease I73.9 Chronic kidney disease, stage 4 (severe) N18.4
[2025-01-12 12:55] VITALS: BP 103/70; TEMP 97.9
--- NOTE | 2025-01-12 13:02 | Surgery Progress Note ---
Date of Service January 12, 2025 Assessment & Plan (1) S/P vascular surgery: Plan: Patient pod 1 from a left tcar. Doing well d\c today Admission and Anticipated Discharge Date Admission Date: January 11, 2025 Subjective Patient with no complaints. Denies any focal deficits. Physical Exam Constitutional: WD/WN, vitals as above Neck: trachea midline Respiratory: normal respiratory effort; no respiratory distress Cardiovascular: Rate/Rhythm: regular rate and regular rhythm Skin: + incision (dry and clean with moderate ecchymosis) Neurologic: CN's II-XI intact bilaterally and moves all extremities Psychiatric: A+Ox3, euthymic affect Results & Data Vital Signs (Past 12 Hours) Vital Signs Temp Pulse Pulse Resp BP BP Pulse Ox 01/12/25 12:50 36.6 C 86 16 103/70 93 01/12/25 10:00 110/73 01/12/25 10:00 110/73 01/12/25 10:00 70 16 110/73 93 01/12/25 09:00 96 H 14 140/81 95 01/12/25 08:00 102 H 18 106/82 94 01/12/25 08:00 102 H 01/12/25 07:00 36.4 C L 97 H 14 134/95 97 01/12/25 06:00 153/88 H 01/12/25 06:00 78 15 96 01/12/25 05:00 131/89 01/12/25 04:48 82 16 100 01/12/25 04:03 75 16 100 01/12/25 04:00 137/84 01/12/25 03:00 77 17 100 01/12/25 03:00 126/79 01/12/25 02:00 122/78 O2 Del Method 01/12/25 12:50 01/12/25 10:00 01/12/25 10:00 01/12/25 10:00 01/12/25 09:00 Room Air 01/12/25 08:00 Room Air 01/12/25 08:00 01/12/25 07:00 Room Air 01/12/25 06:00 01/12/25 06:00 01/12/25 05:00 01/12/25 04:48 01/12/25 04:03 01/12/25 04:00 01/12/25 03:00 01/12/25 03:00 01/12/25 02:00
[2025-01-12 13:04] VITALS: PULSE 81
--- NOTE | 2025-01-12 13:08 | Discharge Summary ---
Date of Service January 12, 2025 Admission HPI Per Admitting Provider Ms. Amado is an elderly female who presents to vascular surgery clinic in consultation for carotid stenosis noted on recent imaging. Patient states that she did have a left carotid endarterectomy performed by Dr. Arriaga in the remote past. She states that her digital strategist has been having her get ultrasounds performed periodically, and she was informed that her most recent ultrasound indicated worsening restenosis in this area. Patient states that her primary symptoms at this time are that she is very hard of hearing and is hearing voices occasionally which sound like someone is singing. She admits some occasional numbness to the lateral side of her right leg, but states that it continues to function perfectly fine. Additionally she states that she occasionally gets a severe headache which is generalized and not unilateral. She states that she has had all the symptoms for a number of years. She denies true amaurosis, but states that she sometimes does feel as if she sees someone walking past her left eye, but when she turns her head no one is there. She denies feeling as if part of her vision is missing, or a curtain is coming down or cloud is coming over her eye. She denies unilateral extremity weakness numbness or tingling, difficulty speaking or swallowing, facial droop, sudden onset confusion, other complaints. She denies fever, chest pain, shortness of breath, abdominal pain, nausea, vomiting, rest pain, claudication, nonhealing's or ulcers, other complaints. Her MRA of her carotids artery showed a severe preocclusive lesion of the left internal carotid artery just at the distal end of the endarterectomy site. The right carotid has approximately 50% narrowing at its origin. Admission Exam Per Admitting Provider Constitutional: In general patient is a healthy appearing for age well-nourished well-developed elderly female in no distress. She is alert and oriented without focal deficits. She is hard of hearing. Her trachea is midline. Her carotids do demonstrate a faint bruit. Her heart is regular with occasional PVCs. Her abdomen is soft nontender with erected bowel sounds in all 4 quadrants. Radial and brachial pulses are +3. Femoral pulses are +3. Lower extremity distal pulses are +1. She has brisk capillary refill and no sign of distal ischemia. Principal Diagnosis left internal carotid artery stenosis Discharge Exam Constitutional WD/WN, vitals as above Neck trachea midline Respiratory normal respiratory effort; no respiratory distress Cardiovascular Rate/Rhythm: regular rate and regular rhythm Skin + incision (dry and clean with moderate ecchymosis) Neurologic CN's II-XI intact bilaterally and moves all extremities Psychiatric A+Ox3, euthymic affect Discharge Data Allergies Allergy/AdvReac Type Severity Reaction Status Date / Time amlodipine Allergy Unknown UNKNOWN Verified 01/11/25 07:21 REACTION Uwgzxwy-RXS-XeG Reductase Allergy Unknown ANKLE Verified 01/11/25 07:21 Inhibitor SWELLING [Xkebate-Ipp-Khu Reductase Inhibitor] Consultations 01/11/25 10:44 Consult Automat Car Attendant Routine Procedures Performed Operation Date: 01/11/25 08:00 Actual Procedures p Left transcarotid artery revascularization, ultrasound localization of the right common femoral vein(Left) - Cristian Broussard MD Ordered Studies 01/11/25 07:10 EV angio carotid cerv LT Routine US EV guide vascular access Routine Hospital Course (1) S/P vascular surgery: Patient pod 1 from a left tcar. Doing well d\c today Total Time Total Time Spent Total Time Spent (In Minutes): x Discharge Plan Discharge Items Patient Disposition: Home - Self-Care Reason For Visit: Left Internal Carotid Artery Stenosis Discharge Diagnosis: left internal carotid artery stenosis Activity: Per Instructions section Non-emergency contact: Surgeon Call non-emergency contact if: your temperature is above 101.5, your wound has increased redness, your wound has increased drainage and your wound pain has increased Follow-up/Referrals: Feliberto Alejo MD [Primary Care Provider] - Diet: Heart Healthy Addtl Attending Provider Instructions: SPECIAL CARE INSTRUCTIONS: Diet: * You may return to previous diet. Medications: * Continue to take Aspirin, plavix, and statin as directed. Incision Care: * You may shower, but do not rub incision. You may let the warm soapy water run over it. Be sure to dry the incision well after bathing. * Do not shave directly over the incision until it is healed. * DO NOT IMMERSE THE INCISION IN A TUB/POOL/etc. UNTIL HEALED. Restrictions: * Do not drive for at least one week or if you are still taking any narcotic pain medication. * Do not lift anything heavier than a gallon of milk for one week after going home. Possible Complications: * Numbness - It is normal to have some numbness around the incision. Numbness can extend beyond the incision to areas of the neck, ear and face. The numbness is due to bruising of nerves during the surgery and will gradually improve over a period of months. * Hoarseness/Difficulty Speaking and Swallowing - The bruising of nerves in the neck can also cause a hoarse voice, difficulty speaking or swallowing. This may improve over time, HOWEVER, if it continues for more than a few days please contact our office ([phone]). * Excessive Swelling - There will be some swelling immediately after surgery which usually resolves within one week. If you notice that the swelling is getting worse, notify your surgeon ([phone]). * Drainage/Bleeding - If there is any drainage or bleeding, it should be a very small amount (less than a teaspoon per day). If you have excessive bleeding or drainage from the incision, call your surgeon ([phone]) right away. ACTIVATION OF EMERGENCY MEDICAL SYSTEM: Call 911, immediately, if you experience any of the following: Warning Signs and Symptoms of Stroke: * Sudden numbness or weakness of the face, arm or leg, especially on one side of the body * Sudden confusion, trouble speaking or understanding * Sudden trouble seeing in one or both eyes * Sudden trouble walking, dizziness, loss of balance or coordination * Sudden severe headache with no cause Do not delay calling 911 if you experience any warning signs or symptoms of a stroke. Delay in seeking medical attention may affect what treatments can be given to you. Risk Factors for Stroke: You can reduce your chances of stroke by working with your medical provider to adopt a healthy lifestyle. Some specific ways to lower your chance of stroke are: * If you are a smoker, now is the time to stop smoking cigarettes * If you are diabetic, improve the control of your blood sugars * Avoid excessive amounts of alcohol * Control high blood pressure * Lose weight if you are overweight * Be sure to lead an active lifestyle * Eat a healthy diet low in salt, cholesterol and fat You should know about other risk factors for stroke that you are unable to control. These include: * Age 55 years or older * Male gender * Certain racial groups: , or / * Family History of Stroke, Mini stroke or Heart Attack * Sickle Cell Disease You will be receiving a call from the Vascular Surgery Nurse after you are discharged. FOLLOW UP VISIT: It is important for you to keep your follow up appointments with your medical provider. Keep any scheduled doctor appointments. Call [phone] to schedule a follow up appointment if one not already scheduled. Pending Studies at Discharge: No Stand-Alone Forms: [facility], Smoking Cessation Medications and DC Order Prescriptions: New oxycodone 5 mg tablet 5 mg PO Q8H PRN (Reason: pain) Qty: 10 0RF Continued clopidogrel 75 mg Tablet 75 mg PO QPM rosuvastatin 40 mg Tablet 40 mg PO QPM biotin 1,000 mcg Tablet,Chewable 1,000 mcg PO QAM amoxicillin 500 mg tablet 2,000 mg PO UD PRN (Reason: dental procedures) Rx Instructions: 4 tabs 1 hour prior to procedure pantoprazole 20 mg tablet,delayed release (DR/EC) 20 mg PO QAM candesartan-hydrochlorothiazid 16-12.5 mg tablet 1 tab PO QAM metoprolol tartrate 50 mg tablet 50 mg PO QAM folic acid 1 mg tablet 1 mg PO QAM Rx Instructions: TAKE 1 TABLET DAILY cholecalciferol (vitamin D3) 25 mcg (1,000 unit) capsule 25 mcg PO QAM aspirin 81 mg Tablet,Chewable 81 mg PO Q OTHER DAY Discharge Orders: Discharge Order (Routine); Ordered 01/12/25 Ordered By: Cristian Broussard Admission Data Admit Date/Time: 01/11/25 07:28 Attending Provider: Cristian Broussard Admit Provider: Cristian Broussard Primary Care Provider: Feliberto Alejo V. Other Providers: Pawel Robles; Juventino Morrissey; Avel Gilliam; Nicole Weber; Del Guy; Melvi Velez; Elvis Bermeo; Merced Wahl Other Interventions: Discharge Summary Assessment (RN) Last Done: 01/12/25 12:50
[2025-01-12] MEDS ORDERED: CLOPIDOGREL BISULFATE 75 MG TAB PO SCH (21:00)
== END 2025-01-12 13:50 | disposition home or self-care (01) | DRG 35 ==
LOC: ASU 06:36 → 1E 07:28
PROC: EV.TCAR (2025-01-11 08:00)